=== PATIENT | female | born 2000 | race Caucasian/White ===

== ENCOUNTER 2021-03-04 19:53 | Inpatient (IN) ==
[2021-03-04] MEDS ORDERED: ONDANSETRON INJ 2 MG/ML 2 ML VIAL IV STA ×2 (20:19→21:13)
[2021-03-04] MEDS ORDERED: SODIUM CHLORIDE 0.9% 1000ML 1,000 ML IV SCH (20:30)
--- NOTE | 2021-03-04 20:39 | Emergency Department Note ---
History of Present Illness General Chief complaint: Vomiting Stated complaint: VOMITING Time Seen by Provider: 03/04/21 20:07 History of Present Illness Maximum Pain Intensity: 7 This is a 20-year-old female that presents to the emergency department via private vehicle accompanied by female with complaints of "vomiting, abdominal pain". The patient states that around 6:30 PM yesterday she began with nausea followed by dry heaving and vomiting. She also notes some chills. She has vo mited a total of 9 times. She notes periumbilical abdominal discomfort that is also involving the left and right side. She describes it like a "knife" in the abdomen. She notes every time she tries to eat she vomits. If she drinks fluids she vomits. She denies any blood in the vomit or stool. She does note some associated diarrhea. She does note a history of abdominal surgery 20 years ago for intestinal malrotation. She denies any other pertinent past medical history, surgeries or allergies. Current pain 08/30. Home Medications Medication Instructions Recorded Confirmed Type spironolactone 50 mg tablet 50 mg PO DAILY 03/04/21 03/04/21 History Allergies Allergy/AdvReac Type Severity Reaction Status Date / Time No Known Allergies Allergy Unverified 03/04/21 20:41 Past Med/Surg History Medical History Intestinal malrotation Surgical History Hx of abdominal surgery At had surgery for intestinal malrotation Social History Smoking Status: Never smoker Hx Alcohol Use: Yes Alcohol Intake Frequency: 2-4 x/Month Alcohol Intake Frequency Comment: 3-4 drinks every other week Hx Substance Use: No Feels Safe at Home: Yes Review of Systems A total of 10 systems reviewed and were otherwise negative Physical Exam Vital Signs Vital Signs - 24 hr 03/04/21 19:58 03/04/21 20:40 03/04/21 20:44 Temperature 36.4 C L Temperature Source Temporal Artery Scan Pulse Rate 102 H Pulse Rate [Apical] 80 Respiratory Rate 18 22 Respiratory Effort / Characteristics Non-Labored Spontaneous Respiratory Depth Normal Blood Pressure 127/92 Blood Pressure [Right Arm] 115/78 Blood Pressure Mean 103 Blood Pressure Mean [Right Arm] 90 Pulse Oximetry 97 98 Oxygen Delivery Method Room Air Room Air Room Air Sepsis Recent Fever Within 48 Hours No Sepsis New/Unexplained Change in Mental Status No Sepsis Action Taken by Nursing No Action Required 03/04/21 21:09 03/04/21 22:00 03/04/21 23:00 Temperature Temperature Source Pulse Rate 85 77 78 Pulse Rate [Apical] Respiratory Rate 19 16 20 Respiratory Effort / Characteristics Respiratory Depth Blood Pressure 141/87 H 112/75 107/71 Blood Pressure [Right Arm] Blood Pressure Mean 105 87 83 Blood Pressure Mean [Right Arm] Pulse Oximetry 97 98 98 Oxygen Delivery Method Room Air Room Air Room Air Sepsis Recent Fever Within 48 Hours Sepsis New/Unexplained Change in Mental Status Sepsis Action Taken by Nursing 03/05/21 00:00 Temperature Temperature Source Pulse Rate 70 Pulse Rate [Apical] Respiratory Rate 14 Respiratory Effort / Characteristics Respiratory Depth Blood Pressure 112/74 Blood Pressure [Right Arm] Blood Pressure Mean 86 Blood Pressure Mean [Right Arm] Pulse Oximetry 98 Oxygen Delivery Method Room Air Sepsis Recent Fever Within 48 Hours Sepsis New/Unexplained Change in Mental Status Sepsis Action Taken by Nursing VITAL SIGNS - Vital signs and nursing notes were reviewed. Stable and afebrile. GENERAL -20-year-old female appearing her stated age who is in no acute distress but is tearful. Communicates well with provider and answers questions appropriately. SKIN - Without rashes. No meningeal or petechial rash. HEAD - NC/AT. EYES - Sclera anicteric. MOUTH/OROPHARYNX - Without perioral cyanosis. NECK - No nuchal rigidity. LUNGS - Chest wall symmetric without accessory muscle use, intercostals retractions, or central cyanosis. Normal vesicular breath sounds CTA B/L. No wheezes, rales, or rhonchi appreciated. CARDIAC - RRR with S1/S2. No murmur, rubs, or gallops appreciated. ABDOMEN - Abdominal contour normal without pulsations or visible masses. BS normoactive all four quadrants. Generalized abdominal tenderness to palpation worse periumbilically. No guarding or rigidity. No evidence of surgical abdomen. No palpable masses, hepatosplenomegaly, or ascites noted. NEUROLOGIC - Cranial nerves II through XII grossly intact. PSYCH - A&Ox3 and cooperates fully with examiner. Pt is very pleasant and interacts well with examiner. Course Administered Medications Discontinued Medications Sodium Chloride (Nss 1000ml) 1,000 mls @ 999 mls/hr IV .Q1H1M BENY Stop: 03/04/21 21:30 Last Infusion: 03/04/21 21:33 Dose: 0 mls/hr Documented by: [id number] Admin: 03/04/21 20:31 Dose: 999 mls/hr Documented by: [id number] Ioversol (Optiray 320 100ml) 91 ml IV ONCE ONE Stop: 03/04/21 21:27 Last Admin: 03/04/21 21:30 Dose: 91 ml Documented by: [id number] Ketorolac Tromethamine (Ketorolac Tromethamine 15 Mg/Ml Vial) 15 mg IV NOW STA Stop: 03/04/21 21:10 Last Admin: 03/04/21 21:19 Dose: 15 mg Documented by: [id number] Morphine Sulfate (Morphine Sulfate 2 Mg/Ml Carp) 2 mg IV NOW STA Stop: 03/04/21 22:24 Last Admin: 03/04/21 22:48 Dose: 2 mg Documented by: [id number] Ondansetron HCl (Ondansetron Inj 2 Mg/Ml 2 Ml Vial) 4 mg IV NOW STA Stop: 03/04/21 20:20 Last Admin: 03/04/21 20:31 Dose: 4 mg Documented by: [id number] Ondansetron HCl (Ondansetron Inj 2 Mg/Ml 2 Ml Vial) 4 mg IV NOW STA Stop: 03/04/21 21:14 Last Admin: 03/04/21 21:19 Dose: 4 mg Documented by: [id number] Medical Decision Making Laboratory Data Result diagrams: 03/04/21 20:30 03/04/21 20:30 Lab Results 03/04/21 03/04/21 03/04/21 Range/Units 20:30 20:30 20:30 WBC 14.17 H (4.8-10.8) K/uL RBC 5.13 (4.2-5.4) M/uL Hgb 13.9 (12.0-16.0) g/dL Hct 42.2 (37-47) % MCV 82.3 (80-100) fL MCH 27.1 (25-34) pg MCHC 32.9 (32-36) g/dL RDW Std Deviation 44.2 (36.4-46.3) fL RDW Coeff of Jim 14.8 H (11.5-14.5) % Plt Count 297 (130-400) K/uL MPV 10.9 H (7.4-10.4) fL Immature Gran % (Auto) 0.1 % Neut % (Auto) 85.3 % Lymph % (Auto) 7.3 % [place] % (Auto) 7.1 % Eos % (Auto) 0.1 % Baso % (Auto) 0.1 % Neut # (Auto) 12.08 H (1.4-6.5) K/uL Lymph # (Auto) 1.04 L (1.2-3.4) K/uL [place] # (Auto) 1.01 H (0.11-0.59) K/uL Eos # (Auto) 0.02 (0-0.5) K/uL Baso # (Auto) 0.01 (0-0.2) K/uL Immature Gran # (Auto) 0.01 (0.00-0.02) K/uL Sodium 137 (136-145) mmol/L Potassium 3.6 (3.5-5.1) mmol/L Chloride 102 (98-107) mmol/L Carbon Dioxide 23 (21-32) mmol/L Anion Gap 12 H (3-11) BUN 17 (6-23) mg/dl Creatinine 0.92 (0.6-1.2) mg/dl Est Cr Clr Drug Dosing 106.5 ml/min Est GFR ( Amer) 103.9 ml/min Est GFR (Non-Af Amer) 89.6 ml/min BUN/Creatinine Ratio 18.5 (10-20) Glucose 97 (70-99) mg/dl Calcium 9.5 (8.5-10.1) mg/dl Magnesium 1.9 (1.7-2.4) mg/dl Total Bilirubin 1.0 (0.2-1.0) mg/dl AST 14 (13-39) U/L ALT 10 (7-52) U/L Alkaline Phosphatase 87 (34-104) U/L Total Protein 8.2 (6.0-8.3) gm/dl Albumin 4.8 (3.4-5.0) gm/dl Globulin 3.4 (2.5-4.0) gm/dl Albumin/Globulin Ratio 1.4 (0.9-2) Lipase 25 (11-82) U/L HCG, Qual Negative (Negative) Urine Color Urine Appearance (Clear) Urine pH (4.5-7.5) Ur Specific [place] (1.000-1.030) Urine Protein (Negative) Urine Glucose (UA) (Negative) Urine Ketones (Negative) Urine Blood (Negative) Urine Nitrite (Negative) Urine Bilirubin (Negative) Urine Urobilinogen (Negative) Ur Leukocyte Esterase (Negative) Urine WBC (Auto) (0-5) /hpf Urine RBC (Auto) (0-4) /hpf U Hyaline Cast (Auto) (0-5) /lpf U Epithel Cells (Auto) (0-5) /lpf Urine Bacteria (Auto) (Negative) SARS-CoV-2 (PCR) (Negative) Influenza Type A (PCR) (Neg) Influenza Type B (PCR) (Neg) RSV (RT-PCR) (Neg) 03/04/21 03/04/21 Range/Units 20:35 21:00 WBC (4.8-10.8) K/uL RBC (4.2-5.4) M/uL Hgb (12.0-16.0) g/dL Hct (37-47) % MCV (80-100) fL MCH (25-34) pg MCHC (32-36) g/dL RDW Std Deviation (36.4-46.3) fL RDW Coeff of Jim (11.5-14.5) % Plt Count (130-400) K/uL MPV (7.4-10.4) fL Immature Gran % (Auto) % Neut % (Auto) % Lymph % (Auto) % [place] % (Auto) % Eos % (Auto) % Baso % (Auto) % Neut # (Auto) (1.4-6.5) K/uL Lymph # (Auto) (1.2-3.4) K/uL [place] # (Auto) (0.11-0.59) K/uL Eos # (Auto) (0-0.5) K/uL Baso # (Auto) (0-0.2) K/uL Immature Gran # (Auto) (0.00-0.02) K/uL Sodium (136-145) mmol/L Potassium (3.5-5.1) mmol/L Chloride (98-107) mmol/L Carbon Dioxide (21-32) mmol/L Anion Gap (3-11) BUN (6-23) mg/dl Creatinine (0.6-1.2) mg/dl Est Cr Clr Drug Dosing ml/min Est GFR ( Amer) ml/min Est GFR (Non-Af Amer) ml/min BUN/Creatinine Ratio (10-20) Glucose (70-99) mg/dl Calcium (8.5-10.1) mg/dl Magnesium (1.7-2.4) mg/dl Total Bilirubin (0.2-1.0) mg/dl AST (13-39) U/L ALT (7-52) U/L Alkaline Phosphatase (34-104) U/L Total Protein (6.0-8.3) gm/dl Albumin (3.4-5.0) gm/dl Globulin (2.5-4.0) gm/dl Albumin/Globulin Ratio (0.9-2) Lipase (11-82) U/L HCG, Qual (Negative) Urine Color Yellow Urine Appearance Clear (Clear) Urine pH 6.0 (4.5-7.5) Ur Specific [place] 1.014 (1.000-1.030) Urine Protein Negative (Negative) Urine Glucose (UA) Negative (Negative) Urine Ketones 3+ H (Negative) Urine Blood Negative (Negative) Urine Nitrite Negative (Negative) Urine Bilirubin Negative (Negative) Urine Urobilinogen Negative (Negative) Ur Leukocyte Esterase 1+ H (Negative) Urine WBC (Auto) 10-30 H (0-5) /hpf Urine RBC (Auto) 0-4 (0-4) /hpf U Hyaline Cast (Auto) 1-5 (0-5) /lpf U Epithel Cells (Auto) >30 H (0-5) /lpf Urine Bacteria (Auto) 1+ H (Negative) SARS-CoV-2 (PCR) NEGATIVE (Negative) Influenza Type A (PCR) Negative (Neg) Influenza Type B (PCR) Negative (Neg) RSV (RT-PCR) Negative (Neg) Imaging Data Radiologist's Impression: CT ABDOMEN & PELVIS With Contrast: Dilated fluid and gas-filled small bowel loops with transition point to smaller caliber small bowel loops with wall thickening in the lower midline abdomen. Findings are concerning for enteritis with at least partial small bowel obstruction. Small amount of ascites. Appendix is not definitely visualized on this exam. No hydronephrosis or obstructing stone. Intrauterine device in appropriate position. Radiologist: Clark Senior M.D. Study ready at 21:37 and initial results transmitted at 22:28 MDM Narrative Patient was seen and evaluated as above in room C03. Review was performed of nursing notes and vital signs. After obtaining a thorough history and physical examination the above work up was performed. Patient presents to us today with nausea, vomiting and abdominal pain. This began as nausea and vomiting about 24 hours ago. She is tearful on exam. She has abdominal tenderness. No guarding or rigidity. No peritoneal signs. Options of care were discussed with the patient. IV access was established. Labs were drawn. She was initially given 4 mg of IV Zofran, 1 L of normal saline. She had very little improvement with this. She was then given 15 mg of IV Toradol and a second dose of 4 mg IV Zofran. The Zofran seemed to tremendously help her nausea but the abdominal pain persisted. She was then given 2 mg of IV morphine after discussing benefits and risks. She was reevaluated with tremendous improvement. Laboratory studies reveal leukocytosis 14.17. No anemia. No emergent metabolic disturbance. Urinalysis reveals what is likely a contaminated sample. Culture pending. COVID testing negative. Influenza negative. It is felt that a CT scan of the abdomen and pelvis is warranted given her symptoms. This was obtained. Results as above. There are dilated fluid and gas-filled small bowel loops with transition point to smaller caliber small bowel loops with wall thickening the lower midline abdomen noted per CT scan report. They do comment the findings are concerning for enteritis with at least partial small bowel obstruction. Patient certainly has symptoms which correlate with this. Patient had no further vomiting after medication here and do not believe that NG tube at the present time is necessary however certainly reassessments will be needed in the inpatient setting. At this time I do believe that further evaluation and management in the inpatient setting is warranted. Case discussed with the attending physician as well as the hospitalist. Please refer to further documentation regarding her stay. GCS: 15 In the evaluation and treatment of this patient, the following differential diagnoses were considered: ASC, [place], Pneumonia, GERD, Cholecystitis, Ascending Cholangitis, Cholydocholithiasis, Bowel Obstruction, ovarian torsion, perforation, appendicitis, PE, Amongst Others. Impression & Plan Small bowel obstruction, partial, Nausea vomiting and diarrhea, Enteritis Discharge Plan Visit Data Chief Complaint: Vomiting Stated Complaint: VOMITING ED Provider: Nathan [facility] ED Midlevel Provider: Gavin Matthew Discharge Problem: Small bowel obstruction, partial, Nausea vomiting and diarrhea, Enteritis Patient Disposition: Admitted As Inpatient Condition: Good Forms Stand Alone Forms: [facility] Prescriptions Prescriptions: No Action spironolactone 50 mg tablet 50 mg PO DAILY RF: 0 Referrals Referrals: [place],[facility] [Primary Care Provider] -
[2021-03-04 20:40] LABS: Basophils # (auto) 0.01 K/uL (0-0.2); Basophils % (auto) 0.1 %; Eosinophils # (auto) 0.02 K/uL (0-0.5); Eosinophils % (auto) 0.1 %; Hematocrit (blood only) 42.2 % (37-47); Hemoglobin 13.9 g/dL (12.0-16.0); Immature Granulocytes # (auto) 0.01 K/uL (0.00-0.02); Immature Granulocytes % (auto) 0.1 %; Lymphocytes # (auto) 1.04 K/uL (1.2-3.4); Lymphocytes % (auto) 7.3 %; Mean Corpuscular Hemoglobin 27.1 pg (25-34); Mean Corpuscular Hgb Conc 32.9 g/dL (32-36); Mean Corpuscular Volume 82.3 fL (80-100); Mean Platelet Volume 10.9 fL (7.4-10.4); Monocytes # (auto) 1.01 K/uL (0.11-0.59); Monocytes % (auto) 7.1 %; Neutrophils # (auto) 12.08 K/uL (1.4-6.5); Neutrophils % (auto) 85.3 %; Platelet Count 297 K/uL (130-400); RDW Coefficient of Variation 14.8 % (11.5-14.5); RDW Standard Deviation 44.2 fL (36.4-46.3); Red Blood Count 5.13 M/uL (4.2-5.4); White Blood Count 14.17 K/uL (4.8-10.8)
[2021-03-04 20:57] LABS: Albumin Globulin Ratio 1.4 (0.9-2); Albumin Level 4.8 gm/dl (3.4-5.0); BUN Creatinine Ratio 18.5 (10-20); Calcium 9.5 mg/dl (8.5-10.1); Creatinine Clr Calc Pharmacy 106.5 ml/min; Est GFR (African American) 103.9 ml/min; Est GFR (Non-African American) 89.6 ml/min; Globulin 3.4 gm/dl (2.5-4.0); Magnesium 1.9 mg/dl (1.7-2.4); Potassium 3.6 mmol/L (3.5-5.1); Total Protein 8.2 gm/dl (6.0-8.3)
[2021-03-04 21:09] LABS: Pregnancy Test, Serum Negative (Negative)
[2021-03-04] MEDS ORDERED: KETOROLAC TROMETHAMINE 15 MG/ML VIAL IV STA (21:09)
[2021-03-04 21:25] LABS: Appearance Urine Clear (Clear); Bacteria Urine Automated 1+ (Negative); Bilirubin Urine Negative (Negative); Blood Urine Negative (Negative); Color Urine Yellow; Epithelial Cell Urine Auto >30 /lpf (0-5); Glucose Urine UA Negative (Negative); Ketones Urine 3+ (Negative); Leukocyte Esterase Urine 1+ (Negative); Nitrite Urine Negative (Negative); Protein Urine Negative (Negative); RBC Urine Automated 0-4 /hpf (0-4); Specific Gravity Urine 1.014 (1.000-1.030); Urobilinogen Urine Negative (Negative)
[2021-03-04] MEDS ORDERED: OPTIRAY 320 100ml IV ONE (21:26)
[2021-03-04 22:13] LABS: Influenza A virus by PCR Negative (Neg); Influenza B virus by PCR Negative (Neg); RSV by PCR Negative (Neg); SARS CoV2 RNA(COVID-19) InHosp NEGATIVE (Negative)
[2021-03-04] MEDS ORDERED: MoRPHine SULFATE 2 MG/ML CARP IV STA (22:23)
[2021-03-04] MEDS ORDERED: PROMETHAZINE HCL 12.5 MG in SODIUM CHLORIDE 0.9% 50 ML IV PRN (23:45)
--- NOTE | 2021-03-04 23:46 | History & Physical Report ---
Date of Service March 04, 2021 Assessment & Plan (1) Small bowel obstruction, partial: Plan: Nataliia Gandhi is a 20y/o F w/ PMH significant for intestinal malrotation at , and acne; who presents for over a day worth of abdominal pain nausea and vomiting with decreased bowel movements. Partial small bowel obstruction: -Likely secondary to viral enteritis -CT abdomen pelvis demonstrating dilated fluid and gas-filled fluid-filled small bowel loops -As symptoms of currently significantly improved following administration of Zofran and morphine can hold off on initiation of NG tube at this time -Zofran PRN first-line for nausea -Phenergan PRN second line for nausea/vomiting if Zofran fails -Tylenol IV as needed for pain while patient NPO -Morphine 2 mg IV q4h PRN for severe abdominal pain -Encouraged avoidance of narcotic use as this can potentiate gastric slowing and prolonged symptom course -NPO with sips and chips until reduction in abdominal pain -Consider repeat abdominal imaging if changes in pain or failure of regression of symptoms -NSS@125/h until able to tolerate oral intake Asymptomatic bacteriuria: -Abnormal urinalysis in ED -As patient is not currently having urinary symptoms and abdominal pain less likely to be explained by urinary tract infection will hold off on initiation of antibiotics CODE STATUS: Conditional code (no artificial ventilation) DVT prophylaxis: Encourage ambulation Diet: NPO with sips and chips (2) Asymptomatic bacteriuria: History of Present Illness Primary Care Provider: [facility] Nataliia Gandhi is a 20y/o F w/ PMH significant for intestinal malrotation at , and acne; who presents for over a day worth of abdominal pain nausea and vomiting with decreased bowel movements. States that yesterday she went to lunch with some friends, and then approximately 6 hours later started to notice that she was having increasing abdominal pain as well as nausea. Over the next several hours she continued to have nausea with intermittent episodes of vomiting. Throughout the day today she noticed that she was having increased urge to go to the bathroom but every time she went she would either have nothing or pure liquid. Has not previously had complications or events like this before. Nobody else that was at lunch has developed symptoms similar to her that she is aware of. Since presentation to the emergency department, she has received 2 doses of Zofran with subsequent improvement of her nausea. As well as received 1 dose of IV morphine which significantly decreased her abdominal pain. She has been able to tolerate small amounts of sips. Has not tried to anything more substantial at this point. Presently denies any chest pain, shortness of breath, urinary discomfort, increased urinary frequency, or changes in color in urine Allergies Allergy/AdvReac Type Severity Reaction Status Date / Time No Known Allergies Allergy Unverified 03/04/21 20:41 Home Medications Medication Instructions Recorded Confirmed Type spironolactone 50 mg tablet 50 mg PO DAILY 03/04/21 03/04/21 History Past Med/Surg History Medical History Intestinal malrotation Surgical History Hx of abdominal surgery At had surgery for intestinal malrotation Social History Smoking Status: Never smoker Second Hand Exposure: No; Do You Dip or Chew Tobacco: No; Tobacco Cessation Education Requested by Patient: No Hx Alcohol Use: Yes Alcohol type: beer Alcohol Intake Frequency: 2-4 x/Month Alcohol Intake Frequency Comment: 3-4 drinks every other week Hx Substance Use: No Preferred Language: [place] Communication Ability: Effective Mule Developer Required: No Beliefs That Will Affect Care: None Current Living Situation Comment: roommates Other Information That Helps Us Care for You: No Feels Safe at Home: Yes Safety Concerns: Feels Safe At This Time Review of Systems Review of Systems: All systems reviewed & are unremarkable except as noted in HPI & below Physical Exam Constitutional: WD/WN, vitals as above Eyes: PERRL, conjunctivae normal, anicteric sclerae Respiratory: normal respiratory effort, lungs clear to auscultation Auscultation: no crackles, no rales, no rhonchi and no wheezes Cardiovascular: Rate/Rhythm: regular rate and regular rhythm Heart Sounds: no gallop, no murmur and no cardiac rub Vessels: normal peripheral pulses; no JVD Extremities: no edema Gastrointestinal (Abdomen): Inspection/Auscultation: abdomen normal to inspection; abdomen not distended Percussion/Palpation: + abdomen tender and abdomen soft; no guarding and no hepatosplenomegaly Musculoskeletal: no cyanosis or clubbing, extremities motor strength 5/5 Skin: no rashes, warm and dry Neurologic: PERRL, EOMI, accommodation nl, no face palsy, no dysarthria CN's II-XI intact bilaterally and moves all extremities Psychiatric: Orientation: alert and oriented x 3 Results & Data Results & Data ([facility]) Vital Signs (Past 12 Hours) Vital Signs Temp Pulse Pulse Resp BP BP Pulse Ox 03/04/21 23:00 78 20 107/71 98 03/04/21 22:00 77 16 112/75 98 03/04/21 21:09 85 19 141/87 H 97 03/04/21 20:44 80 22 115/78 98 03/04/21 20:40 97 03/04/21 19:58 36.4 C L 102 H 18 127/92 Laboratory Results 03/04/21 03/04/21 03/04/21 Range/Units 21:00 20:35 20:30 WBC (4.8-10.8) K/uL RBC (4.2-5.4) M/uL Hgb (12.0-16.0) g/dL Hct (37-47) % MCV (80-100) fL MCH (25-34) pg MCHC (32-36) g/dL RDW Std Deviation (36.4-46.3) fL RDW Coeff of Jim (11.5-14.5) % Plt Count (130-400) K/uL MPV (7.4-10.4) fL Immature Gran % (Auto) % Neut % (Auto) % Lymph % (Auto) % [place] % (Auto) % Eos % (Auto) % Baso % (Auto) % Neut # (Auto) (1.4-6.5) K/uL Lymph # (Auto) (1.2-3.4) K/uL [place] # (Auto) (0.11-0.59) K/uL Eos # (Auto) (0-0.5) K/uL Baso # (Auto) (0-0.2) K/uL Immature Gran # (Auto) (0.00-0.02) K/uL Sodium (136-145) mmol/L Potassium (3.5-5.1) mmol/L Chloride (98-107) mmol/L Carbon Dioxide (21-32) mmol/L Anion Gap (3-11) BUN (6-23) mg/dl Creatinine (0.6-1.2) mg/dl Est Cr Clr Drug Dosing ml/min Est GFR ( Amer) ml/min Est GFR (Non-Af Amer) ml/min BUN/Creatinine Ratio (10-20) Glucose (70-99) mg/dl Calcium (8.5-10.1) mg/dl Magnesium (1.7-2.4) mg/dl Total Bilirubin (0.2-1.0) mg/dl AST (13-39) U/L ALT (7-52) U/L Alkaline Phosphatase (34-104) U/L Total Protein (6.0-8.3) gm/dl Albumin (3.4-5.0) gm/dl Globulin (2.5-4.0) gm/dl Albumin/Globulin Ratio (0.9-2) Lipase (11-82) U/L HCG, Qual Negative (Negative) Urine Color Yellow Urine Appearance Clear (Clear) Urine pH 6.0 (4.5-7.5) Ur Specific [place] 1.014 (1.000-1.030) Urine Protein Negative (Negative) Urine Glucose (UA) Negative (Negative) Urine Ketones 3+ H (Negative) Urine Blood Negative (Negative) Urine Nitrite Negative (Negative) Urine Bilirubin Negative (Negative) Urine Urobilinogen Negative (Negative) Ur Leukocyte Esterase 1+ H (Negative) Urine WBC (Auto) 10-30 H (0-5) /hpf Urine RBC (Auto) 0-4 (0-4) /hpf U Hyaline Cast (Auto) 1-5 (0-5) /lpf U Epithel Cells (Auto) >30 H (0-5) /lpf Urine Bacteria (Auto) 1+ H (Negative) SARS-CoV-2 (PCR) NEGATIVE (Negative) Influenza Type A (PCR) Negative (Neg) Influenza Type B (PCR) Negative (Neg) RSV (RT-PCR) Negative (Neg) 03/04/21 03/04/21 Range/Units 20:30 20:30 WBC 14.17 H (4.8-10.8) K/uL RBC 5.13 (4.2-5.4) M/uL Hgb 13.9 (12.0-16.0) g/dL Hct 42.2 (37-47) % MCV 82.3 (80-100) fL MCH 27.1 (25-34) pg MCHC 32.9 (32-36) g/dL RDW Std Deviation 44.2 (36.4-46.3) fL RDW Coeff of Jim 14.8 H (11.5-14.5) % Plt Count 297 (130-400) K/uL MPV 10.9 H (7.4-10.4) fL Immature Gran % (Auto) 0.1 % Neut % (Auto) 85.3 % Lymph % (Auto) 7.3 % [place] % (Auto) 7.1 % Eos % (Auto) 0.1 % Baso % (Auto) 0.1 % Neut # (Auto) 12.08 H (1.4-6.5) K/uL Lymph # (Auto) 1.04 L (1.2-3.4) K/uL [place] # (Auto) 1.01 H (0.11-0.59) K/uL Eos # (Auto) 0.02 (0-0.5) K/uL Baso # (Auto) 0.01 (0-0.2) K/uL Immature Gran # (Auto) 0.01 (0.00-0.02) K/uL Sodium 137 (136-145) mmol/L Potassium 3.6 (3.5-5.1) mmol/L Chloride 102 (98-107) mmol/L Carbon Dioxide 23 (21-32) mmol/L Anion Gap 12 H (3-11) BUN 17 (6-23) mg/dl Creatinine 0.92 (0.6-1.2) mg/dl Est Cr Clr Drug Dosing 106.5 ml/min Est GFR ( Amer) 103.9 ml/min Est GFR (Non-Af Amer) 89.6 ml/min BUN/Creatinine Ratio 18.5 (10-20) Glucose 97 (70-99) mg/dl Calcium 9.5 (8.5-10.1) mg/dl Magnesium 1.9 (1.7-2.4) mg/dl Total Bilirubin 1.0 (0.2-1.0) mg/dl AST 14 (13-39) U/L ALT 10 (7-52) U/L Alkaline Phosphatase 87 (34-104) U/L Total Protein 8.2 (6.0-8.3) gm/dl Albumin 4.8 (3.4-5.0) gm/dl Globulin 3.4 (2.5-4.0) gm/dl Albumin/Globulin Ratio 1.4 (0.9-2) Lipase 25 (11-82) U/L HCG, Qual (Negative) Urine Color Urine Appearance (Clear) Urine pH (4.5-7.5) Ur Specific [place] (1.000-1.030) Urine Protein (Negative) Urine Glucose (UA) (Negative) Urine Ketones (Negative) Urine Blood (Negative) Urine Nitrite (Negative) Urine Bilirubin (Negative) Urine Urobilinogen (Negative) Ur Leukocyte Esterase (Negative) Urine WBC (Auto) (0-5) /hpf Urine RBC (Auto) (0-4) /hpf U Hyaline Cast (Auto) (0-5) /lpf U Epithel Cells (Auto) (0-5) /lpf Urine Bacteria (Auto) (Negative) SARS-CoV-2 (PCR) (Negative) Influenza Type A (PCR) (Neg) Influenza Type B (PCR) (Neg) RSV (RT-PCR) (Neg) Diagnostic Findings CT ABDOMEN & PELVIS With Contrast: Dilated fluid and gas-filled small bowel loops with transition point to smaller caliber small bowel loops with wall thickening in the lower midline abdomen. Findings are concerning for enteritis with at least partial small bowel obstruction. Small amount of ascites. Appendix is not definitely visualized on this exam. No hydronephrosis or obstructing stone. Intrauterine device in appropriate position. Radiologist: Clark Senior M.D. Medications Administered Home Medication List Medication Instructions Recorded spironolactone 50 mg tablet 50 mg PO DAILY 03/04/21 Supervising Physician Co-Signing Physician Notes Patient seen and examined, chart reviewed, case discussed with Dr. Akers and I agree with his assessment and plan as above. In brief, patient is a 20yo female with history of intestinal malrotation as a child presenting with acute diarrhea after lunch with friends. +Abdominal pain No BM or flatus since arrival +Nausea, well controlled with Zofran Exam: Afebrile, HD stable, nontoxic, NAD SKin -intact, no rash HEENT - NC/AT, PERRL, MMM Heart - +S1/S2, regular, no m/r/g Lungs - CTA Abd - +BS, soft, ND, tender to palpation LLQ Ext - no edema Labs and images reviewed +leukocytosis Assessment/Plan ?SBO vs enteritis -NPO, IVF, control of pain and nausea -Consider KUB in AM -Remainder as above Resident Activity Tracking Resident Involvement: Resident Care Provided Care Provided: Adult Hospital Medicine
[2021-03-05] MEDS: SODIUM CHLORIDE 0.9% 1000ML 1,000 ML IV SCH ×3 (01:05→17:16)
--- NOTE | 2021-03-05 02:31 | Billing Data ---
Date of Service March 04, 2021 Coding Level of Care Code INT OBSERVATION CARE 50M LVL 2
[2021-03-05] MEDS: ONDANSETRON INJ 2 MG/ML 2 ML VIAL IV PRN ×2 (05:41→12:54)
[2021-03-05 06:12] LABS: Basophils # (auto) 0.01 K/uL (0-0.2); Basophils % (auto) 0.1 %; Eosinophils # (auto) 0.15 K/uL (0-0.5); Eosinophils % (auto) 1.6 %; Hemoglobin 11.3 g/dL (12.0-16.0); Immature Granulocytes # (auto) 0.01 K/uL (0.00-0.02); Immature Granulocytes % (auto) 0.1 %; Lymphocytes # (auto) 2.34 K/uL (1.2-3.4); Lymphocytes % (auto) 24.3 %; Mean Corpuscular Hemoglobin 26.8 pg (25-34); Mean Corpuscular Hgb Conc 32.3 g/dL (32-36); Mean Corpuscular Volume 82.9 fL (80-100); Mean Platelet Volume 10.5 fL (7.4-10.4); Monocytes # (auto) 1.07 K/uL (0.11-0.59); Monocytes % (auto) 11.1 %; Neutrophils # (auto) 6.03 K/uL (1.4-6.5); Neutrophils % (auto) 62.8 %; Platelet Count 235 K/uL (130-400); RDW Coefficient of Variation 14.9 % (11.5-14.5); RDW Standard Deviation 44.4 fL (36.4-46.3); Red Blood Count 4.22 M/uL (4.2-5.4); White Blood Count 9.61 K/uL (4.8-10.8)
[2021-03-05] MEDS: MoRPHine SULFATE 2 MG/ML CARP IV PRN ×4 (06:40→21:22)
[2021-03-05 06:46] LABS: Albumin Globulin Ratio 1.4 (0.9-2); Albumin Level 3.7 gm/dl (3.4-5.0); BUN Creatinine Ratio 17.3 (10-20); Bilirubin,Total 0.8 mg/dl (0.2-1.0); Calcium 8.3 mg/dl (8.5-10.1); Creatinine Clr Calc Pharmacy 121.1 ml/min; Est GFR (African American) 121.2 ml/min; Est GFR (Non-African American) 104.6 ml/min; Globulin 2.6 gm/dl (2.5-4.0); Magnesium 1.9 mg/dl (1.7-2.4); Phosphorus 3.9 mg/dl (2.5-4.9); Potassium 3.5 mmol/L (3.5-5.1); Total Protein 6.3 gm/dl (6.0-8.3)
--- NOTE | 2021-03-05 07:47 | Hospitalist Progress Note ---
Date of Service March 05, 2021 Assessment & Plan (1) Small bowel obstruction, partial: Plan: Nataliia Gandhi is a 20y/o F w/ PMH significant for intestinal malrotation at , and acne; who presents for over a day worth of abdominal pain nausea and vomiting with decreased bowel movements. Partial small bowel obstruction: -Patient with hx of abdominal surgery when . -CT abdomen pelvis demonstrating dilated fluid and gas-filled fluid-filled small bowel loops -SBO most likely 2/2 adhesions. -Given 1 bag NSS@125cc/h, NPO, advance diet as tolerated. -Surgery consulted. -Recommend conservative treatment at this time with NPO, IV fluids, supportive care. -If symptoms worsen can consider ex lap. -Repeat AM labs and KUB. -Tylenol IV as needed for pain while patient NPO. -Morphine 2 mg IV q4h PRN for severe abdominal pain -Consider repeat abdominal imaging if changes in pain or increased vomiting. -Zofran q4h PRN, second line Phenergan 12.5mg Q6 PRN for nausea Asymptomatic bacteriuria: -Abnormal urinalysis in ED -As patient is not currently having urinary symptoms and abdominal pain less likely to be explained by urinary tract infection will hold off on initiation of antibiotics CODE STATUS: Conditional code (no artificial ventilation) DVT prophylaxis: Encourage ambulation Diet: NPO with sips and chips (2) Asymptomatic bacteriuria: Admission and Anticipated Discharge Date Admission Date: March 04, 2021 Supervising Physician Co-Signing Physician Notes Resident Physician Supervision Note: I independently interviewed and examined the patient and verified the barber history and physical, reviewed labs and image studies and agree with resident Dr. Mccormack findings and care plan. Subjective Patient seen at bedside this morning. Patient stated she is still feeling pain in the abdomen that's about a 6 out of 10. Patient denies nausea and denies having any episodes of emesis prior to coming in to the hospital. Denies fevers, chills. Patient stated she went out to lunch with her friends the day her pain started and ate a pizza with pesto and chicken. She said her friends ate the same thing and none of them developed any illness or the same symptoms. Physical Exam Constitutional: WD/WN, vitals as above Eyes: PERRL, conjunctivae normal, anicteric sclerae Respiratory: normal respiratory effort, lungs clear to auscultation Cardiovascular: RRR, no murmur, no edema Gastrointestinal (Abdomen): BS+ all 4 quadrants, non-distended, soft. Tenderness to palpation in all 4 quadrants, no rebound tenderness or guarding. Results & Data Results & Data ([facility]) Vital Signs (Past 12 Hours) Vital Signs Temp Pulse Pulse Pulse Resp BP BP 03/05/21 00:54 36.7 C 60 16 101/62 03/05/21 00:00 70 14 112/74 03/04/21 23:00 78 20 107/71 03/04/21 22:00 77 16 112/75 03/04/21 21:09 85 19 141/87 H 03/04/21 20:44 80 22 115/78 03/04/21 20:40 03/04/21 19:58 36.4 C L 102 H 18 127/92 Pulse Ox 03/05/21 00:54 97 03/05/21 00:00 98 03/04/21 23:00 98 03/04/21 22:00 98 03/04/21 21:09 97 03/04/21 20:44 98 03/04/21 20:40 97 03/04/21 19:58 Resident Activity Tracking Resident Involvement: Resident Care Provided Care Provided: Adult Hospital Medicine
--- NOTE | 2021-03-05 08:08 | CT Scan Report ---
CT OF THE ABDOMEN AND PELVIS WITH CONTRAST CLINICAL HISTORY: nausea, vomiting, diarrhea COMPARISON STUDY: None. TECHNIQUE: Following IV administration of 91 mL of Optiray, axial images of the abdomen and pelvis we re obtained from the lung bases to the proximal femurs. Images were reviewed in the axial, sagittal, and coronal planes. IV contrast was administered without complication. Automated exposure control wa s utilized for the study. A dose lowering technique was utilized adhering to the principles of ALARA . CT DOSE: 370.86 mGy.cm FINDINGS: Lung bases are unremarkable. No pneumatosis, free air or portal venous gas is present. The liver, spleen, adrenal glands, kidneys and pancreas are unremarkable. There is no biliary or pancreat ic ductal dilatation. There is no peripancreatic or pericholecystic infiltration. No hydronephrosis i s present. Note is made of evidence for intestinal malrotation. Specifically, the SMA and SMV relatio nship is inverted, the ligament of Treitz is abnormally positioned and the cecum is located within th e mid abdomen. However, there is no significant swirling of the mesentery and the proximal to mid sma ll bowel is unremarkable. Therefore, there is no convincing CT evidence for midgut volvulus. However, the mid to distal small bowel is moderately dilated and fluid-filled, measuring up to 3.7 cm in renzo lashaun. A small amount of associated ascites and mesenteric infiltration is present. Discrete transition point is not identified however distal small bowel is decompressed. Note is made of moderate wall th ickening of multiple ileal loops. Intrauterine device is in place. Major vasculature is patent. No ac rukhsana fracture or suspicious lesion is identified within visualized skeletal structures. IMPRESSION: 1. Moderately dilated, fluid-filled mid to distal small bowel consistent with a small bowel obstructi on. A well-defined transition point not identified. The etiology for this obstruction is not clear on this exam although may be secondary to a nonspecific enteritis given wall thickening of multiple ile al loops. Associated mesenteric infiltration and ascites, as described above. 2. Evidence for congenital intestinal malrotation, as described above. However, no significant swirli ng of the mesentery and the proximal to mid small bowel is unremarkable. Therefore, there is no convi ncing CT evidence for midgut volvulus. However, close clinical monitoring is recommended. If persiste nt symptoms, surgical consultation is recommended. ACT 112: Negative or not required by law. Electronically signed by: Bud Antony M.D. 03/05/2021 8:07 AM
[2021-03-05] MEDS: ACETAMINOPHEN 1000 MG/100 ML IV IV PRN ×2 (09:06→22:20)
--- NOTE | 2021-03-05 12:53 | Surgery Consultation ---
Date of Consultation March 05, 2021 Assessment & Plan (1) Enteritis: (2) Small bowel obstruction, partial: pt is a 20 year-old female who was admitted to hospital for abdominal pain with vomiting, IMP: SBO, enteritis? adhesion ? plan, recommend conservative treatment first, NPO, IV fluid, control pain, repeat labs KUB in morning, possible to do exploratory laparotomy if pt's symptoms are getting worse, pt understood, she agrees with the treatment, plan, I answered all questions,will F/U, Supervising Physician Co-Signing Physician Notes Patient seen and examined, chart reviewed, case discussed with Dr. Akers and I agree with his assessment and plan as above. In brief, patient is a 20yo female with history of intestinal malrotation as a child presenting with acute diarrhea after lunch with friends. +Abdominal pain No BM or flatus since arrival +Nausea, well controlled with Zofran Exam: Afebrile, HD stable, nontoxic, NAD SKin -intact, no rash HEENT - NC/AT, PERRL, MMM Heart - +S1/S2, regular, no m/r/g Lungs - CTA Abd - +BS, soft, ND, tender to palpation LLQ Ext - no edema Labs and images reviewed +leukocytosis Assessment/Plan ?SBO vs enteritis -NPO, IVF, control of pain and nausea -Consider KUB in AM -Remainder as above History of Present Illness Reason for Consultation: SBO Requesting Physician: Claire Lozada MD Attending Physician: Claire Lozada MD History of Present Illness History of Present Illness Primary Care Provider: [facility] CC: abdominal pain with nausea and vomiting, Nataliia Gandhi is a 20y/o F w/ PMH significant for intestinal malrotation at , and acne; who presents for over a day worth of abdominal pain nausea and vomiting with decreased bowel movements. States that yesterday she went to lunch with some friends, and then approximately 6 hours later started to notice that she was having increasing abdominal pain as well as nausea. Over the next several hours she continued to have nausea with intermittent episodes of vomiting. Throughout the day today she noticed that she was having increased urge to go to the bathroom but every time she went she would either have nothing or pure liquid. Has not previously had complications or events like this before. Nobody else that was at lunch has developed symptoms similar to her that she is aware of. Since presentation to the emergency department, she has received 2 doses of Zofran with subsequent improvement of her nausea. As well as received 1 dose of IV morphine which significantly decreased her abdominal pain. She has been able to tolerate small amounts of sips. Has not tried to anything more substantial at this point. Presently denies any chest pain, shortness of breath, urinary discomfort, increased urinary frequency, or changes in color in urine I ( Olaf Calderón MD) got a call for consult SBO, I reviewed pts' H/P, labs CT scan with pt, pt feels better, but not pass gas or BM yet, no vomiting, since admittion, I attempted to place NG tube, but pt is not tolerated it, pt had abdominal surgery at her early age, pt did not what kind surgery she had. pt passed BM yesterday, Allergies Allergy/AdvReac Type Severity Reaction Status Date / Time No Known Allergies Allergy Unverified 03/04/21 20:41 Home Medications Medication Instructions Recorded Confirmed Type spironolactone 50 mg tablet 50 mg PO DAILY 03/04/21 03/04/21 His tory Past Med/Surg History Medical History Intestinal malrotation Surgical History Hx of abdominal surgery At had surgery for intestinal malrotation Social History Smoking Status: Never smoker Second Hand Exposure: No; Do You Dip or Chew Tobacco: No; Tobacco Cessation Education Requested by Patient: No Hx Alcohol Use: Yes Alcohol type: beer Alcohol Intake Frequency: 2-4 x/Month Alcohol Intake Frequency Comment: 3-4 drinks every other week Hx Substance Use: No Preferred Language: Dominican Communication Ability: Effective Rn Nicu Required: No Beliefs That Will Affect Care: None Current Living Situation Comment: roommates Other Information That Helps Us Care for You: No Feels Safe at Home: Yes Safety Concerns: Feels Safe At This Time Review of Systems Review of Systems: All systems reviewed & are unremarkable except as noted in HPI & below Allergies Allergy/AdvReac Type Severity Reaction Status Date / Time No Known Allergies Allergy Unverified 03/04/21 20:41 Home Medications Medication Instructions Recorded Confirmed Type spironolactone 50 mg tablet 50 mg PO DAILY 03/04/21 03/04/21 History Patient History Medical History Intestinal malrotation Surgical History Hx of abdominal surgery At had surgery for intestinal malrotation Social History Smoking Status: Never smoker Second Hand Exposure: No; Do You Dip or Chew Tobacco: No; Tobacco Cessation Education Requested by Patient: No Hx Alcohol Use: Yes Alcohol type: beer Alcohol Intake Frequency: 2-4 x/Month Alcohol Intake Frequency Comment: 3-4 drinks every other week Hx Substance Use: No Preferred Language: Dominican Communication Ability: Effective Rn Nicu Required: No Beliefs That Will Affect Care: None Current Living Situation Comment: roommates Other Information That Helps Us Care for You: No Feels Safe at Home: Yes Safety Concerns: Feels Safe At This Time Assistive Devices: None Review of Systems Constitutional: as per Subjective / HPI Eyes: as per Subjective / HPI Ear, Nose, Mouth, Throat: as per Subjective / HPI Respiratory: as per Subjective / HPI Cardiovascular: as per Subjective / HPI Gastrointestinal: malrotaion GI, surgery on abdomen Genitourinary: as per Subjective / HPI Musculoskeletal: as per Subjective / HPI Neurologic: as per Subjective / HPI Psychiatric: as per Subjective / HPI Endocrine: as per Subjective / HPI Hematologic / Lymphatic: as per Subjective / HPI Physical Exam Constitutional: WD/WN, vitals as above Eyes: PERRL, conjunctivae normal, anicteric sclerae Neck: trachea midline, no thyromegaly Respiratory: normal respiratory effort, lungs clear to auscultation Cardiovascular: RRR, no murmur, no edema Gastrointestinal (Abdomen): soft, mild tenderness periumbilical area, no rebound pain, no distend, BS + Musculoskeletal: no cyanosis or clubbing, extremities motor strength 5/5 Neurologic: patellar DTR's 2+ bilat, sensation intact Psychiatric: A+Ox3, euthymic affect Results & Data ([facility]) Vital Signs (Past 12 Hours) Vital Signs Temp Pulse Resp BP BP Pulse Ox 03/05/21 09:10 106/71 03/05/21 07:45 36.7 C 63 14 84/53 L 98 03/05/21 00:54 36.7 C 60 16 101/62 97 Laboratory Results Abnormal lab results 03/04/21 03/04/21 03/04/21 Range/Units 20:30 20:30 21:00 WBC 14.17 H (4.8-10.8) K/uL Hgb (12.0-16.0) g/dL Hct (37-47) % RDW Coeff of Jim 14.8 H (11.5-14.5) % MPV 10.9 H (7.4-10.4) fL Neut # (Auto) 12.08 H (1.4-6.5) K/uL Lymph # (Auto) 1.04 L (1.2-3.4) K/uL [place] # (Auto) 1.01 H (0.11-0.59) K/uL Chloride (98-107) mmol/L Anion Gap 12 H (3-11) Calcium (8.5-10.1) mg/dl AST (13-39) U/L Urine Ketones 3+ H (Negative) Ur Leukocyte Esterase 1+ H (Negative) Urine WBC (Auto) 10-30 H (0-5) /hpf U Epithel Cells (Auto) >30 H (0-5) /lpf Urine Bacteria (Auto) 1+ H (Negative) 03/05/21 03/05/21 Range/Units 05:45 05:45 WBC (4.8-10.8) K/uL Hgb 11.3 L (12.0-16.0) g/dL Hct 35.0 L (37-47) % RDW Coeff of Jim 14.9 H (11.5-14.5) % MPV 10.5 H (7.4-10.4) fL Neut # (Auto) (1.4-6.5) K/uL Lymph # (Auto) (1.2-3.4) K/uL [place] # (Auto) 1.07 H (0.11-0.59) K/uL Chloride 108 H (98-107) mmol/L Anion Gap (3-11) Calcium 8.3 L (8.5-10.1) mg/dl AST 11 L (13-39) U/L Urine Ketones (Negative) Ur Leukocyte Esterase (Negative) Urine WBC (Auto) (0-5) /hpf U Epithel Cells (Auto) (0-5) /lpf Urine Bacteria (Auto) (Negative) Diagnostic Findings CT OF THE ABDOMEN AND PELVIS WITH CONTRAST CLINICAL HISTORY: nausea, vomiting, diarrhea COMPARISON STUDY: None. TECHNIQUE: Following IV administration of 91 mL of Optiray, axial images of the abdomen and pelvis were obtained from the lung bases to the proximal femurs. Images were reviewed in the axial, sagittal, and coronal planes. IV contrast was administered without complication. Automated exposure control was utilized for the study. A dose lowering technique was utilized adhering to the principles of ALARA. CT DOSE: 370.86 mGy.cm FINDINGS: Lung bases are unremarkable. No pneumatosis, free air or portal venous gas is present. The liver, spleen, adrenal glands, kidneys and pancreas are unremarkable. There is no biliary or pancreatic ductal dilatation. There is no peripancreatic or pericholecystic infiltration. No hydronephrosis is present. Note is made of evidence for intestinal malrotation. Specifically, the SMA and SMV relationship is inverted, the ligament of Treitz is abnormally positioned and the cecum is located within the mid abdomen. However, there is no significant swirling of the mesentery and the proximal to mid small bowel is unremarkable. Therefore, there is no convincing CT evidence for midgut volvulus. However, the mid to distal small bowel is moderately dilated and fluid-filled, measuring up to 3.7 cm in caliber. A small amount of associated ascites and mesenteric infiltration is present. Discrete transition point is not identified however distal small bowel is decompressed. Note is made of moderate wall thickening of multiple ileal loops. Intrauterine device is in place. Major vasculature is patent. No acute fracture or suspicious lesion is identified within visualized skeletal structures. IMPRESSION: 1. Moderately dilated, fluid-filled mid to distal small bowel consistent with a small bowel obstruction. A well-defined transition point not identified. The etiology for this obstruction is not clear on this exam although may be secondary to a nonspecific enteritis given wall thickening of multiple ileal loops. Associated mesenteric infiltration and ascites, as described above. 2. Evidence for congenital intestinal malrotation, as described above. However, no significant swirling of the mesentery and the proximal to mid small bowel is unremarkable. Therefore, there is no convincing CT evidence for midgut volvulus. However, close clinical monitoring is recommended. If persistent symptoms, surgical consultation is recommended.
[2021-03-06] MEDS: SODIUM CHLORIDE 0.9% 1000ML 1,000 ML IV SCH ×2 (02:02→17:22)
[2021-03-06] MEDS: MoRPHine SULFATE 2 MG/ML CARP IV PRN ×4 (02:03→18:51)
--- NOTE | 2021-03-06 07:02 | XRay Report ---
KUB HISTORY: Acute generalized abdominal pain with reported small bowel obstruction SBO COMPARISON: CT abdomen and pelvis March 04, 2021 FINDINGS: Air is noted within the large bowel. There is decreased small bowel distention with a few l oops of small bowel within the central abdomen measuring up to 2.9 cm. IUD of the mid pelvis. No brett al calculi. No ureteral calculi. No pneumoperitoneum or pneumatosis. No fracture. IMPRESSION: Findings suggestive of resolving small bowel obstruction. ACT 112: Negative or not required by law. The above report was generated using voice recognition software. It may contain grammatical, syntax o r spelling errors. Electronically signed by: Bryan George M.D. 03/06/2021 7:00 AM
--- NOTE | 2021-03-06 07:20 | Hospitalist Progress Note ---
Date of Service March 06, 2021 Assessment & Plan (1) Small bowel obstruction, partial: Plan: Nataliia Gandhi is a 20y/o F w/ PMH significant for intestinal malrotation at , and acne; who presents for over a day worth of abdominal pain nausea and vomiting with decreased bowel movements. Partial small bowel obstruction: -Patient with hx of abdominal surgery when infant. -CT abdomen pelvis demonstrating dilated fluid and gas-filled fluid-filled small bowel loops -SBO most likely 2/2 adhesions. -Given 1 bag NSS@125cc/h, NPO, advance diet as tolerated. -Surgery consulted. -Recommend conservative treatment at this time with NPO, IV fluids, supportive care. -If symptoms worsen can consider ex lap. -KUB this morning showing resolving SBO. -Tylenol IV as needed for pain while patient NPO. -Morphine 2 mg IV q4h PRN for severe abdominal pain -Zofran q4h PRN, second line Phenergan 12.5mg Q6 PRN for nausea -if passing gas - to advance diet to clears Hypoglycemia: -Glucose on BMP 48, repeat on glucometer 2 hours later 46. Patient asymptomatic. -Most likely 2/2 NPO status. -Given 1 bag D5LR. -Cont. to monitor. Asymptomatic bacteriuria: -Abnormal urinalysis in ED, urine culture w/ no growth. -As patient is not currently having urinary symptoms and abdominal pain less likely to be explained by urinary tract infection will hold off on initiation of antibiotics CODE STATUS: Conditional code (no artificial ventilation) DVT prophylaxis: Encourage ambulation Diet: NPO with sips and chips (2) Asymptomatic bacteriuria: Admission and Anticipated Discharge Date Admission Date: March 04, 2021 Supervising Physician Co-Signing Physician Notes Resident Physician Supervision Note: I independently interviewed and examined the patient and verified the barber history and physical, reviewed labs and image studies and agree with resident Dr. Mccormack findings and care plan. Subjective Patient seen at the bedside this morning. Patient saying she is feeling overall better than yesterday but pain is still present. No nausea at the time being and patient has not vomited while here. While checking on the patient in the evening, she let me know she has not had a bowel movement or passed gas yet. Physical Exam Constitutional: WD/WN, vitals as above Eyes: PERRL, conjunctivae normal, anicteric sclerae Respiratory: normal respiratory effort, lungs clear to auscultation Cardiovascular: RRR, no murmur, no edema Gastrointestinal (Abdomen): Tenderness to palpation in all 4 quadrants. No rebound tenderness or guarding. Results & Data Results & Data ([facility]) Vital Signs (Past 12 Hours) Vital Signs Temp Pulse Resp BP Pulse Ox 03/05/21 22:50 36.2 C L 68 16 97/56 L 98 Resident Activity Tracking Resident Involvement: Resident Care Provided Care Provided: Adult Hospital Medicine
--- NOTE | 2021-03-06 07:44 | Surgery Progress Note ---
Date of Service March 06, 2021 Assessment & Plan (1) Enteritis: (2) Small bowel obstruction, partial: Plan: pt is a 20 year-old female who was admitted to hospital for abdominal pain with vomiting, IMP: SBO, enteritis? adhesion ? plan, recommend conservative treatment first, NPO, IV fluid, control pain, repeat labs KUB in morning, possible to do exploratory laparotomy if pt's symptoms are getting worse, pt understood, she agrees with the treatment, plan, I answered all questions,will F/U, 03/06/2021, 7:47AM F/U SBO doing better, passed some gas, less abdominal pain, KUB-IMPRESSION: Findings suggestive of resolving small bowel obstruction. possible try clear diet if pt pass more gas today afternoon or tomorrow, continue conservative treatment professional engineer surgeon will cover this weekend, thanks, Admission and Anticipated Discharge Date Admission Date: March 04, 2021 Supervising Physician Co-Signing Physician Notes Resident Physician Supervision Note: I independently interviewed and examined the patient and verified the barber history and physical, reviewed labs and image studies and agree with resident Dr. Mccormack findings and care plan. Subjective Patient seen at the bedside this morning. pt feels better, passed some gas, no BM yet, pt denies vomiting, no fever, KUB- IMPRESSION: Findings suggestive of resolving small bowel obstruction. Review of Systems Constitutional: as per Subjective / HPI Eyes: as per Subjective / HPI Ear, Nose, Mouth, Throat: as per Subjective / HPI Respiratory: as per Subjective / HPI Cardiovascular: as per Subjective / HPI Gastrointestinal: malrotaion GI, surgery on abdomen Genitourinary: as per Subjective / HPI Musculoskeletal: as per Subjective / HPI Neurologic: as per Subjective / HPI Psychiatric: as per Subjective / HPI Endocrine: as per Subjective / HPI Hematologic / Lymphatic: as per Subjective / HPI Physical Exam Constitutional: WD/WN, vitals as above Eyes: PERRL, conjunctivae normal, anicteric sclerae Neck: trachea midline, no thyromegaly Respiratory: normal respiratory effort, lungs clear to auscultation Cardiovascular: RRR, no murmur, no edema Gastrointestinal (Abdomen): soft, mild tenderness at periumbilical area, no rebound pain, no distend, BS + Musculoskeletal: no cyanosis or clubbing, extremities motor strength 5/5 Neurologic: patellar DTR's 2+ bilat, sensation intact Psychiatric: A+Ox3, euthymic affect Results & Data ([facility]) Vital Signs (Past 12 Hours) Vital Signs Temp Pulse Resp BP BP Pulse Ox 03/06/21 07:03 36.3 C L 61 16 98/59 L 99 03/05/21 22:50 36.2 C L 68 16 97/56 L 98 Diagnostic Findings KUB-
[2021-03-06 08:22] LABS: Basophils # (auto) 0.02 K/uL (0-0.2); Basophils % (auto) 0.3 %; Eosinophils # (auto) 0.12 K/uL (0-0.5); Eosinophils % (auto) 1.6 %; Hematocrit (blood only) 34.1 % (37-47); Immature Granulocytes # (auto) 0.01 K/uL (0.00-0.02); Immature Granulocytes % (auto) 0.1 %; Lymphocytes # (auto) 1.76 K/uL (1.2-3.4); Lymphocytes % (auto) 24.1 %; Mean Corpuscular Hemoglobin 27.3 pg (25-34); Mean Corpuscular Hgb Conc 32.3 g/dL (32-36); Mean Corpuscular Volume 84.6 fL (80-100); Mean Platelet Volume 10.9 fL (7.4-10.4); Monocytes # (auto) 0.69 K/uL (0.11-0.59); Monocytes % (auto) 9.4 %; Neutrophils # (auto) 4.71 K/uL (1.4-6.5); Neutrophils % (auto) 64.5 %; Platelet Count 210 K/uL (130-400); RDW Coefficient of Variation 14.9 % (11.5-14.5); RDW Standard Deviation 45.8 fL (36.4-46.3); Red Blood Count 4.03 M/uL (4.2-5.4); White Blood Count 7.31 K/uL (4.8-10.8)
[2021-03-06 09:02] LABS: BUN Creatinine Ratio 16.9 (10-20); Calcium 7.6 mg/dl (8.5-10.1); Creatinine Clr Calc Pharmacy 138.1 ml/min; Est GFR (African American) 142.1 ml/min; Est GFR (Non-African American) 122.6 ml/min; Potassium 3.8 mmol/L (3.5-5.1)
[2021-03-06] MEDS ORDERED: D5W AND LACTATED RINGERS 1,000 ML IV SCH ×2 (09:45→20:30)
[2021-03-06] MEDS: ACETAMINOPHEN 1000 MG/100 ML IV IV PRN (19:24)
[2021-03-06] MEDS ORDERED: KETOROLAC TROMETHAMINE 15 MG/ML VIAL IV ONE (19:50)
--- NOTE | 2021-03-06 20:51 | XRay Report ---
XR KUB/Abdomen 1 view at 8:32 PM CLINICAL HISTORY: SBO eval.. COMPARISON STUDY: 03/06/2021 at 6:54 AM TECHNIQUE: Single view of the abdomen. FINDINGS: Compared to the previous examination, air-filled loops of both large and small bowel are seen without evidence for disproportionate dilatation or obstruction. There is no evidence for organomegaly or gr oss intra-abdominal mass. There is gross distention of the urinary bladder. No abnormal calcification s are seen along the course of the urinary tracts bilaterally. No acute osseous pathology. IUD is in place. IMPRESSION: 1.Air-filled loops of both large and small bowel without evidence for disproportionate dilatation or obstruction. Distention of the urinary bladder. ACT 112: Negative or not required by law. Electronically signed by: Aly Joaquin M.D. 03/06/2021 8:49 PM
--- NOTE | 2021-03-07 05:31 | Surgery Progress Note ---
Date of Service March 07, 2021 Assessment & Plan (1) Small bowel obstruction, partial: Plan: Patient has been admitted by the hospitalist service: CT scan on 03/04/2021 showed a moderately distended and fluid-filled small bowel concerning for small bowel obstruction without a clear transition point. Findings were also felt to potentially represent nonspecific enteritis. Evidence for congenital intestinal malrotation was also noted but there is no evidence of a volvulus. KUB was performed on 03/06/2021 that showed evidence for a resolving small bowel obstruction KUB was repeated the evening of 03/06/2021 that showed air-filled loops of large and small bowel that were not entirely convincing of small bowel obstruction Due to patient's worsening symptoms would recommend keeping patient n.p.o. If nausea vomiting ensue consideration may need to be given to placing an NG tube Maintain on IV fluid for hydration Admission and Anticipated Discharge Date Admission Date: March 04, 2021 Supervising Physician Co-Signing Physician Notes Dr. Quinteros-covering for Dr. Calderón Patient apparently did have some abdominal pain last evening-KUB did not show significantly dilated loops of bowel Gas within the colon and small bowel. Patient has not had any vomiting since admission Her abdomen is soft and she does have bowel sounds but does have some discomfort to deep palpation Apparent attempt of NG placement through right nares in the ER was somewhat traumatic and on successful Will continue with limited p.o., try to hold off on NG placement which would be via left nares and when she vomits Consider contrast study-small bowel follow-through may be best but we will hold off for now I have no plan for surgical intervention unless this would be a life-threatening situation Encouraged ambulation-check electrolytes, mag and Phos Subjective Patient is resting in bed. She has been seen by [facility] general surgery for concern for a small bowel obstruction that was felt to be resolving yesterday. Consideration was given to advancing patient's diet however she continues to have some generalized abdominal pain. Patient says that she is not passing any further flatus or has not moved her bowels yet. She also notes that she does feel nauseated at times without emesis. She denies any fevers, shakes, chills Physical Exam Gastrointestinal (Abdomen): Bowel sounds are hypoactive. Abdomen is minimally distended. There is no rebound tenderness or guarding. Patient does have some generalized pain with palpation. Results & Data ([facility]) Vital Signs (Past 12 Hours) Vital Signs Temp Pulse Resp BP Pulse Ox 03/06/21 23:00 36.7 C 63 17 101/66 97 PG Care Time/CCT Total # of Minutes Spent Total Time Spent with Patient: Total time spent is greater than 50% in coordination of care (as documented) at patient's floor/unit and/or counseling patient: Coding Level of Care Code 91897 Subseq Hosp Care Lvl 1 Diagnoses Small bowel obstruction, partial K56.600
[2021-03-07 06:41] LABS: Basophils # (auto) 0.02 K/uL (0-0.2); Basophils % (auto) 0.4 %; Eosinophils # (auto) 0.15 K/uL (0-0.5); Eosinophils % (auto) 2.8 %; Hematocrit (blood only) 33.9 % (37-47); Hemoglobin 10.9 g/dL (12.0-16.0); Lymphocytes # (auto) 1.52 K/uL (1.2-3.4); Lymphocytes % (auto) 28.6 %; Mean Corpuscular Hemoglobin 26.9 pg (25-34); Mean Corpuscular Hgb Conc 32.2 g/dL (32-36); Mean Corpuscular Volume 83.7 fL (80-100); Mean Platelet Volume 10.9 fL (7.4-10.4); Monocytes # (auto) 0.62 K/uL (0.11-0.59); Monocytes % (auto) 11.7 %; Neutrophils % (auto) 56.5 %; Platelet Count 226 K/uL (130-400); RDW Coefficient of Variation 14.9 % (11.5-14.5); RDW Standard Deviation 45.4 fL (36.4-46.3); Red Blood Count 4.05 M/uL (4.2-5.4); White Blood Count 5.31 K/uL (4.8-10.8)
[2021-03-07 07:12] LABS: Creatinine Clr Calc Pharmacy 130.7 ml/min; Est GFR (Non-African American) 114.7 ml/min; Potassium 3.6 mmol/L (3.5-5.1)
[2021-03-07] MEDS: MoRPHine SULFATE 2 MG/ML CARP IV PRN (07:47)
[2021-03-07 09:08] LABS: Magnesium 1.6 mg/dl (1.7-2.4); Phosphorus 3.4 mg/dl (2.5-4.9)
--- NOTE | 2021-03-07 10:37 | Hospitalist Progress Note ---
Date of Service March 07, 2021 Assessment & Plan (1) Small bowel obstruction, partial: Plan: Nataliia Gandhi is a 20y/o F w/ PMH significant for intestinal malrotation at , and acne; admitted for 1+ day of abdominal pain, nausea and vomiting, decreased BM. Acute partial small bowel obstruction: -Risk factor- previous abdominal surgery. SBO most likely due to adhesions. -CTAP- dilated fluid + gas-filled small bowel loops -NSS IVF, NPO -Surgery consulted and following -Recommend conservative treatment at this time with NPO, IV fluids, supportive care -If symptoms worsen can consider exploratory laparotomy -03/07 recommendations- remain NPO + IVF due to persistent pain, consider NG tube placement if persistent nausea/vomiting occur -Pain control with Tylenol, Toradol. Avoid morphine use due to possibly reducing gastric motility -Zofran, Phenergan PRN for nausea -Continue mIVF Hypoglycemia -Admission glucose 48, asymptomatic. Given D5LR. -03/07 glucose 85 -Trend BMP Asymptomatic bacteriuria: -Abnormal urinalysis in ED, urine culture w/ no growth. -Will not treat with abx given no urinary symptoms CODE STATUS: Conditional code (no artificial ventilation) DVT prophylaxis: Encourage ambulation Diet: NPO Disposition: Floor (2) Asymptomatic bacteriuria: Admission and Anticipated Discharge Date Admission Date: March 04, 2021 Supervising Physician Co-Signing Physician Notes Resident Physician Supervision Note: I independently interviewed and examined the patient and verified the barber history and physical, reviewed labs and image studies and agree with resident Dr. Silva findings and care plan. Subjective Pt had abdominal pain overnight 10/10 severity, KUB ordered which showed distended bladder. Received Toradol and also voided, reported significant improvement in pain afterwards. Currently endorsing 5/10 abdominal pain, states she passed gas last night and again 1.5 hours prior to evaluation. Review of Systems Review of Systems: Per subjective Physical Exam Constitutional: WD/WN, vitals as above Eyes: PERRL, conjunctivae normal, anicteric sclerae Respiratory: normal respiratory effort, lungs clear to auscultation Auscultation: no crackles, no rales, no rhonchi and no wheezes Cardiovascular: RRR, no murmur, no edema Rate/Rhythm: regular rate and regular rhythm Heart Sounds: no gallop, no murmur and no cardiac rub Vessels: normal peripheral pulses; no JVD Extremities: no edema Gastrointestinal (Abdomen): Inspection/Auscultation: abdomen normal to inspection and + abdomen distended Percussion/Palpation: + abdomen tender and abdomen soft; no guarding and no hepatosplenomegaly Skin: no rashes, warm and dry Neurologic: CN's II-XI intact bilaterally and moves all extremities Psychiatric: Orientation: alert Results & Data Results & Data ([facility]) Vital Signs (Past 12 Hours) Vital Signs Temp Pulse Resp BP Pulse Ox 03/07/21 07:16 36.9 C 67 18 98/49 L 93 03/06/21 23:00 36.7 C 63 17 101/66 97 Resident Activity Tracking Resident Involvement: Resident Care Provided Care Provided: Adult Hospital Medicine
[2021-03-07] MEDS: KETOROLAC TROMETHAMINE 15 MG/ML VIAL IV PRN ×2 (11:47→18:36)
[2021-03-07] MEDS: SODIUM CHLORIDE 0.9% 1000ML 1,000 ML IV SCH (12:29)
[2021-03-07] MEDS: MAGNESIUM SULFATE / D5W 1 GM/100 ML BAG IV SCH ×2 (12:46→16:17)
[2021-03-08] MEDS: SODIUM CHLORIDE 0.9% 1000ML 1,000 ML IV SCH ×2 (00:09→07:27)
[2021-03-08] MEDS: KETOROLAC TROMETHAMINE 15 MG/ML VIAL IV PRN ×3 (00:32→13:09)
--- NOTE | 2021-03-08 05:39 | Surgery Progress Note ---
Date of Service March 08, 2021 Assessment & Plan (1) Small bowel obstruction, partial: Plan: Patient has been admitted by the hospitalist service: CT scan on 03/04/2021 showed a moderately distended and fluid-filled small bowel concerning for small bowel obstruction without a clear transition point. Findings were also felt to potentially represent nonspecific enteritis. Evidence for congenital intestinal malrotation was also noted but there is no evidence of a volvulus. Would continue n.p.o. for the present time until patient has improvement on her abdominal exam and improved bowel function Continue to hold on NG tube unless patient has nausea or vomiting Continue IV fluid for hydration Electrolytes checked yesterday with no significant deficiencies Admission and Anticipated Discharge Date Admission Date: March 04, 2021 Supervising Physician Co-Signing Physician Notes Dr. Quinteros-patient has not had any emesis and has somewhat less abdominal pain She does want to try some clear liquids Continue supportive care for now Hold off on any contrast study for today Subjective Patient is resting comfortably in bed at the time of my interview. She denied any nausea or vomiting over the past 24 hours. She notes that last evening she did pass a small amount of flatus. She notes that she does not have much in the way of appetite but previously when she would see food commercials on TV this would make her her feel nauseated which was not the case last night. She continues to note some generalized abdominal pain just to the left of her umbilicus. Physical Exam Gastrointestinal (Abdomen): Abdomen noted to have minimal distention. Bowel sounds are hypoactive. There is no rebound tenderness or guarding but patient does have pain with palpation just to the left of the umbilicus. Results & Data ([facility]) Vital Signs (Past 12 Hours) Vital Signs Temp Pulse Resp BP Pulse Ox 03/07/21 23:12 36.6 C 72 17 99/60 L 96 PG Care Time/CCT Total # of Minutes Spent Total Time Spent with Patient: Total time spent is greater than 50% in coordination of care (as documented) at patient's floor/unit and/or counseling patient: Coding Level of Care Code 64322 Subseq Hosp Care Lvl 1 Diagnoses Small bowel obstruction, partial K56.600
[2021-03-08 08:19] LABS: Hematocrit (blood only) 33.6 % (37-47); Mean Corpuscular Hemoglobin 27.1 pg (25-34); Mean Corpuscular Hgb Conc 32.7 g/dL (32-36); Mean Corpuscular Volume 82.8 fL (80-100); Mean Platelet Volume 10.9 fL (7.4-10.4); Platelet Count 213 K/uL (130-400); RDW Coefficient of Variation 14.6 % (11.5-14.5); RDW Standard Deviation 43.5 fL (36.4-46.3); Red Blood Count 4.06 M/uL (4.2-5.4); White Blood Count 6.54 K/uL (4.8-10.8)
[2021-03-08 08:52] LABS: Anion Gap 8 (3-11); BUN Creatinine Ratio 14.8 (10-20); Blood Urea Nitrogen 8 mg/dl (6-23); Calcium 7.6 mg/dl (8.5-10.1); Carbon Dioxide 18 mmol/L (21-32); Chloride 111 mmol/L (98-107); Creatinine Clr Calc Pharmacy 181.6 ml/min; Est GFR (African American) > 150.0 ml/min; Est GFR (Non-African American) 135.8 ml/min; Glucose 53 mg/dl (70-99); Magnesium 1.7 mg/dl (1.7-2.4); Potassium 3.8 mmol/L (3.5-5.1); Sodium 137 mmol/L (136-145)
[2021-03-08] MEDS ORDERED: DEXTROSE 50% 50 ML SYRINGE IV PRN (09:00)
[2021-03-08] MEDS ORDERED: CARBOHYDRATES FOR HYPOGLYCEMIA PO PRN (09:00)
[2021-03-08] MEDS ORDERED: GLUCAGON FOR INJ 1 MG VIAL IM PRN (09:00)
[2021-03-08] MEDS ORDERED: GLUCOSE 10 TABS/TUBE PO PRN (09:00)
[2021-03-08] MEDS ORDERED: GLUCOSE 40% GEL 15 GM TUBE PO PRN (09:00)
--- NOTE | 2021-03-08 11:48 | Hospitalist Progress Note ---
Date of Service March 08, 2021 Assessment & Plan (1) Small bowel obstruction, partial: Plan: Nataliia Gandhi is a 20y/o F w/ PMH significant for intestinal malrotation at , and acne; admitted for 1+ day of abdominal pain, nausea and vomiting, decreased BM. Acute partial small bowel obstruction: -Risk factor- previous abdominal surgery. SBO most likely due to adhesions. -CTAP- dilated fluid + gas-filled small bowel loops -NSS IVF, NPO -Surgery consulted and following -03/08 recommendations- remain NPO + IVF, consider NG tube placement if persistent nausea/vomiting occur. If pain/abdominal exam/nausea improve, can begin trial of PO intake -Pain control with Tylenol, Toradol PRN. Avoid morphine use due to possibly reducing gastric motility -Zofran, Phenergan PRN for nausea Hypoglycemia -Admission glucose 48, asymptomatic. Given D5LR. -03/08 glucose 53 on BMP, 42 FS. Received 50% dextrose IV, glucose to 131 afterward -Likely due to NPO. Consider adding dextrose to IVF if pt requires continued NPO status -Trend BMP Hyperchloremia -03/08 Cl 111, CO2 18, Cr 0.54 -Likely due to continuous NSS IVF. Expected to improve once patient can start PO intake -Switch to LR -Trend BMP Asymptomatic bacteriuria: -Abnormal urinalysis in ED, urine culture w/ no growth. -Will not treat with abx given no urinary symptoms CODE STATUS: Conditional code (no artificial ventilation) DVT prophylaxis: Encourage ambulation Diet: NPO Disposition: Floor (2) Asymptomatic bacteriuria: Admission and Anticipated Discharge Date Admission Date: March 04, 2021 Supervising Physician Co-Signing Physician Notes Resident Physician Supervision Note: I independently interviewed and examined the patient and verified the barber history and physical, reviewed labs and image studies and agree with resident Cynthia Silva findings and care plan. Subjective No acute events overnight. Pt did pass gas previous evening and twice more overnight prior to evaluation. Still reporting diffuse abdominal pain- 5/10 severity slightly decreased from day prior, received Toradol shortly prior to evaluation. Also attempted to sip water this morning and felt nauseous afterw ángel. Review of Systems Review of Systems: Per subjective Physical Exam Constitutional: WD/WN, vitals as above Eyes: PERRL, conjunctivae normal, anicteric sclerae Respiratory: normal respiratory effort, lungs clear to auscultation Auscultation: no crackles, no rales, no rhonchi and no wheezes Cardiovascular: RRR, no murmur, no edema Rate/Rhythm: regular rate and regular rhythm Heart Sounds: no gallop, no murmur and no cardiac rub Vessels: normal peripheral pulses; no JVD Extremities: no edema Gastrointestinal (Abdomen): Inspection/Auscultation: abdomen normal to inspection and + abdomen distended Percussion/Palpation: + abdomen tender and abdomen soft; no guarding and no hepatosplenomegaly Musculoskeletal: no cyanosis or clubbing, extremities motor strength 5/5 Skin: no rashes, warm and dry Neurologic: moves all extremities Psychiatric: Orientation: alert Results & Data Results & Data ([facility]) Vital Signs (Past 12 Hours) Vital Signs Temp Pulse Resp BP Pulse Ox 03/08/21 07:36 36.8 C 64 20 99/55 L 98 Resident Activity Tracking Resident Involvement: Resident Care Provided Care Provided: Adult Hospital Medicine
[2021-03-08] MEDS: LACTATED RINGER'S 1,000 ML IV SCH ×2 (13:13→21:34)
[2021-03-09] MEDS: LACTATED RINGER'S 1,000 ML IV SCH (05:34)
--- NOTE | 2021-03-09 07:35 | Hospitalist Progress Note ---
Date of Service March 09, 2021 Assessment & Plan (1) Small bowel obstruction, partial: Plan: Nataliia Gandhi is a 20y/o F w/ PMH significant for intestinal malrotation at , and acne; admitted for 1+ day of abdominal pain, nausea and vomiting, decreased BM. Acute partial small bowel obstruction: -Risk factor- previous abdominal surgery. SBO most likely due to adhesions. -CTAP- dilated fluid + gas-filled small bowel loops -NSS IVF, NPO -Surgery consulted and following * Recommend conservative treatment at this time with NPO, IV fluids, supportive care * Exploratory laparotomy if symptoms worsen * Consider NG tube placement if nausea/vomiting persists * Pain control with Tylenol, Toradol PRN * Zofran, Phenergan PRN for nausea * Advanced diet to clear liquids for breakfast, lunch; advance diet again to full liquids for dinner; monitor for * Hold IV fluids Hypoglycemia -Admission glucose 48, asymptomatic. Given D5LR. -03/08 glucose 53 on BMP, 42 FS. Received 50% dextrose IV, glucose to 131 afterward -Likely due to NPO. Consider adding dextrose to IVF if pt requires continued NPO status * Glucose tablets, IV fluids, dextrose all held as patient's diet advanced * Trend BMP Hyperchloremic non-anion gap metabolic acidosis -03/08 Cl 111, CO2 18, Cr 0.54 -Likely due to continuous NSS IVF. Expected to improve once patient can start PO intake * Diet advance to full liquids * Trend BMP Asymptomatic bacteriuria: -Abnormal urinalysis in ED, urine culture w/ no growth. -Will not treat with abx given no urinary symptoms CODE STATUS: Conditional code (no artificial ventilation) DVT prophylaxis: Encourage ambulation Diet: Full liquid diet Dispo: MedSurg without telemetry (2) Asymptomatic bacteriuria: Admission and Anticipated Discharge Date Admission Date: March 04, 2021 Supervising Physician Co-Signing Physician Notes I personally examined the patient and verified all barber points of history and exam, discussed case, and agree with decision making with Dr Wright feeling better pain better nausea better tolerated clear liquids no problem vitals noted nad heent nc at mmm breathing unlabored no accessory muscles good effort skin no rashes no pallor or icterus abd soft nd nt no guarding no rebound SBO - improving. slowly advance diet as tolerated, hopefully home once doing better /tolerating low fiber otherwise as above Subjective Patient is resting comfortably in bed this morning. No acute events overnight. Patient reports significant improvement in her abdominal pain, nausea, vomiting. She did not require her antiemetic medications yesterday or overnight. Overall, she states that this is the best she has felt since her admission. She has no concerns or questions at this time. Review of Systems Review of Systems: All systems reviewed & are unremarkable except as noted in HPI & below Physical Exam Constitutional: WD/WN, vitals as above Respiratory: normal respiratory effort, lungs clear to auscultation Cardiovascular: RRR, no murmur, no edema Gastrointestinal (Abdomen): normal bowel sounds, soft, nontender, no hepatosplenomegaly Results & Data Results & Data ([facility]) Vital Signs (Past 12 Hours) Vital Signs Temp Pulse Resp BP Pulse Ox 03/08/21 22:23 36.9 C 57 L 16 95/55 L 97 Resident Activity Tracking Resident Involvement: Resident Care Provided Care Provided: Adult Hospital Medicine
[2021-03-09 09:01] LABS: Hematocrit (blood only) 34.8 % (37-47); Hemoglobin 11.2 g/dL (12.0-16.0); Mean Corpuscular Hemoglobin 26.9 pg (25-34); Mean Corpuscular Hgb Conc 32.2 g/dL (32-36); Mean Corpuscular Volume 83.7 fL (80-100); Mean Platelet Volume 11.1 fL (7.4-10.4); Platelet Count 231 K/uL (130-400); RDW Standard Deviation 45.5 fL (36.4-46.3); Red Blood Count 4.16 M/uL (4.2-5.4); White Blood Count 6.11 K/uL (4.8-10.8)
[2021-03-09 09:27] LABS: BUN Creatinine Ratio 7.7 (10-20); Calcium 8.2 mg/dl (8.5-10.1); Creatinine Clr Calc Pharmacy 150.9 ml/min; Est GFR (African American) 148.1 ml/min; Est GFR (Non-African American) 127.8 ml/min
--- NOTE | 2021-03-09 12:21 | Surgery Progress Note ---
Date of Service March 09, 2021 Assessment & Plan (1) Enteritis: (2) Small bowel obstruction, partial: Plan: pt is a 20 year-old female who was admitted to hospital for abdominal pain with vomiting, IMP: SBO, enteritis? adhesion ? plan, recommend conservative treatment first, NPO, IV fluid, control pain, repeat labs KUB in morning, possible to do exploratory laparotomy if pt's symptoms are getting worse, pt understood, she agrees with the treatment, plan, I answered all questions,will F/U, 03/06/2021, 7:47AM F/U SBO doing better, passed some gas, less abdominal pain, KUB-IMPRESSION: Findings suggestive of resolving small bowel obstruction. 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 Calderón doing better, passed gas, no abdominal pain, tolerated clear diet, possible advance diet tomorrow, will F/U, Admission and Anticipated Discharge Date Admission Date: March 04, 2021 Supervising Physician Co-Signing Physician Notes Resident Physician Supervision Note: I independently interviewed and examined the patient and verified the barber history and physical, reviewed labs and image studies and agree with resident Dr. Silva findings and care plan. Subjective No acute events overnight. Pt did pass gas previous evening and twice more overnight prior to evaluation. Still reporting diffuse abdominal pain- 5/10 severity slightly decreased from day prior, received Toradol shortly prior to evaluation. Also attempted to sip water this morning and felt nauseous afterward. 03/09/2021 12:[address] Calderón F/U SBO, pt feels better, no abdominal pain, tolerated clear diet, no nausea, no vomiting, passed gas, no BM yet, Review of Systems Constitutional: as per Subjective / HPI Eyes: as per Subjective / HPI Ear, Nose, Mouth, Throat: as per Subjective / HPI Respiratory: as per Subjective / HPI Cardiovascular: as per Subjective / HPI Gastrointestinal: malrotaion GI, surgery on abdomen Genitourinary: as per Subjective / HPI Musculoskeletal: as per Subjective / HPI Neurologic: as per Subjective / HPI Psychiatric: as per Subjective / HPI Endocrine: as per Subjective / HPI Hematologic / Lymphatic: as per Subjective / HPI Physical Exam Constitutional: WD/WN, vitals as above Eyes: PERRL, conjunctivae normal, anicteric sclerae Neck: trachea midline, no thyromegaly Respiratory: normal respiratory effort, lungs clear to auscultation Cardiovascular: RRR, no murmur, no edema Gastrointestinal (Abdomen): soft, NT, ND, BS + Musculoskeletal: no cyanosis or clubbing, extremities motor strength 5/5 Neurologic: patellar DTR's 2+ bilat, sensation intact Psychiatric: A+Ox3, euthymic affect Results & Data ([facility]) Vital Signs (Past 12 Hours) Vital Signs Temp Pulse Resp BP Pulse Ox 03/09/21 08:36 36.7 C 64 16 98/59 L 94 Laboratory Results Abnormal lab results 03/09/21 03/09/21 03/09/21 Range/Units 08:11 08:11 09:48 RBC 4.16 L (4.2-5.4) M/uL Hgb 11.2 L (12.0-16.0) g/dL Hct 34.8 L (37-47) % RDW Coeff of Jim 15.0 H (11.5-14.5) % MPV 11.1 H (7.4-10.4) fL Chloride 110 H (98-107) mmol/L Carbon Dioxide 17 L (21-32) mmol/L BUN 5 L (6-23) mg/dl BUN/Creatinine Ratio 7.7 L (10-20) Glucose 49 L* (70-99(Fasting)) mg/dl POC Glucose 111 H (70-99) mg/dl Calcium 8.2 L (8.5-10.1) mg/dl Diagnostic Findings XR KUB/Abdomen 1 view at 8:32 PM CLINICAL HISTORY: SBO eval.. COMPARISON STUDY: 03/06/2021 at 6:54 AM TECHNIQUE: Single view of the abdomen. FINDINGS: Compared to the previous examination, air-filled loops of both large and small bowel are seen without evidence for disproportionate dilatation or obstruction. There is no evidence for organomegaly or gross intra-abdominal mass. There is gross distention of the urinary bladder. No abnormal calcifications are seen along the course of the urinary tracts bilaterally. No acute osseous pathology. IUD is in place. IMPRESSION: 1.Air-filled loops of both large and small bowel without evidence for disproportionate dilatation or obstruction. Distention of the urinary bladder.
[2021-03-09] MEDS ORDERED: D5W AND 1/2NSS + 20MEQ KCL 20 MEQ/1,000 ML BAG IV SCH (12:30)
--- NOTE | 2021-03-09 13:08 | Billing Data ---
Date of Service March 09, 2021 Coding Level of Care Code 12341 Subseq Hosp Care Lvl 3
[2021-03-09] MEDS: POLYETHYLENE (MIRALAX) 17 GM PACK PO SCH (13:16)
[2021-03-10 07:09] LABS: Basophils # (auto) 0.03 K/uL (0-0.2); Basophils % (auto) 0.4 %; Eosinophils # (auto) 0.17 K/uL (0-0.5); Eosinophils % (auto) 2.5 %; Hematocrit (blood only) 33.9 % (37-47); Hemoglobin 11.1 g/dL (12.0-16.0); Immature Granulocytes # (auto) 0.01 K/uL (0.00-0.02); Immature Granulocytes % (auto) 0.1 %; Lymphocytes # (auto) 1.96 K/uL (1.2-3.4); Lymphocytes % (auto) 29.2 %; Mean Corpuscular Hemoglobin 26.9 pg (25-34); Mean Corpuscular Hgb Conc 32.7 g/dL (32-36); Mean Corpuscular Volume 82.3 fL (80-100); Mean Platelet Volume 10.3 fL (7.4-10.4); Monocytes % (auto) 10.4 %; Neutrophils # (auto) 3.84 K/uL (1.4-6.5); Neutrophils % (auto) 57.4 %; Platelet Count 220 K/uL (130-400); RDW Coefficient of Variation 15.2 % (11.5-14.5); RDW Standard Deviation 44.4 fL (36.4-46.3); Red Blood Count 4.12 M/uL (4.2-5.4); White Blood Count 6.71 K/uL (4.8-10.8)
[2021-03-10 07:32] LABS: BUN Creatinine Ratio 5.3 (10-20); Calcium 8.6 mg/dl (8.5-10.1); Creatinine Clr Calc Pharmacy 130.7 ml/min; Est GFR (Non-African American) 114.7 ml/min; Potassium 3.5 mmol/L (3.5-5.1)
--- NOTE | 2021-03-10 07:48 | Hospitalist Progress Note ---
Date of Service March 10, 2021 Assessment & Plan (1) Small bowel obstruction, partial: Plan: Nataliia Gandhi is a 20y/o F w/ PMH significant for intestinal malrotation at , and acne; admitted for 1+ day of abdominal pain, nausea and vomiting, decreased BM. Acute partial small bowel obstruction: -Risk factor- previous abdominal surgery. SBO most likely due to adhesions. -CTAP- dilated fluid + gas-filled small bowel loops -NSS IVF, NPO -Surgery consulted: recommended conservative treatment with IV fluids, making n.p.o. with the option to advance to an exploratory laparotomy if symptoms worsened.Recommended NG tube placement for persistent nausea/vomiting * Pain control with Tylenol, Toradol PRN * Zofran, Phenergan PRN for nausea * Full liquid diet Hypoglycemia -Admission glucose 48, asymptomatic. Given D5LR. -03/08 glucose 53 on BMP, 42 FS. Received 50% dextrose IV, glucose to 131 afterward -Likely due to NPO. Consider adding dextrose to IVF if pt requires continued NPO status * Glucose tablets, IV fluids, dextrose all held as patient's diet advanced * Trend BMP Hyperchloremic non-anion gap metabolic acidosis -03/08 Cl 111, CO2 18, Cr 0.54 -Likely due to continuous NSS IVF. Expected to improve once patient can start PO intake * Diet advance to full liquids * Trend BMP Asymptomatic bacteriuria: -Abnormal urinalysis in ED, urine culture w/ no growth. -Will not treat with abx given no urinary symptoms CODE STATUS: Conditional code (no artificial ventilation) DVT prophylaxis: Encourage ambulation Diet: Full liquid diet Dispo: MedSurg without telemetry (2) Asymptomatic bacteriuria: Admission and Anticipated Discharge Date Admission Date: March 04, 2021 Results & Data Results & Data ([facility]) Vital Signs (Past 12 Hours) Vital Signs Temp Pulse Pulse Resp BP Pulse Ox 03/10/21 07:17 37.1 C 56 L 16 102/67 100 03/09/21 22:50 36.8 C 78 16 103/68 93
[2021-03-10] MEDS: POLYETHYLENE (MIRALAX) 17 GM PACK PO SCH (09:51)
--- NOTE | 2021-03-10 12:24 | Surgery Progress Note ---
Date of Service March 10, 2021 Assessment & Plan (1) Enteritis: (2) Small bowel obstruction, partial: Plan: pt is a 20 year-old female who was admitted to hospital for abdominal pain with vomiting, IMP: SBO, enteritis? adhesion ? plan, recommend conservative treatment first, NPO, IV fluid, control pain, repeat labs KUB in morning, possible to do exploratory laparotomy if pt's symptoms are getting worse, pt understood, she agrees with the treatment, plan, I answered all questions,will F/U, 03/06/2021, 7:47AM F/U SBO doing better, passed some gas, less abdominal pain, KUB-IMPRESSION: Findings suggestive of resolving small bowel obstruction. possible try clear diet if pt pass more gas today afternoon or tomorrow, continue conservative treatment practice management consultant surgeon will cover this weekend, thanks, 03/09/2021 12:22PM DR. Barragan doing better, passed gas, no abdominal pain, tolerated clear diet, possible advance diet tomorrow, will F/U, 03/10/2021 12:21PM, Dr. barragan resolved SBO, soft diet, pt can be discharged today or tomorrow if she tolerated diet, Follow up my clinic in 2 weeks, sign off today, please call with questions, Thanks, Admission and Anticipated Discharge Date Admission Date: March 04, 2021 Supervising Physician Co-Signing Physician Notes I personally examined the patient and verified all barber points of history and exam, discussed case, and agree with decision making with Dr Wright feeling better pain better nausea better tolerated clear liquids no problem vitals noted nad heent nc at mmm breathing unlabored no accessory muscles good effort skin no rashes no pallor or icterus abd soft nd nt no guarding no rebound SBO - improving. slowly advance diet as tolerated, hopefully home once doing better /tolerating low fiber otherwise as above Subjective Patient is resting comfortably in bed this morning. No acute events overnight. Patient reports significant improvement in her abdominal pain, nausea, vomiting. She did not require her antiemetic medications yesterday or overnight. Overall, she states that this is the best she has felt since her admission. She has no concerns or questions at this time. 03/10/2021 12:19PM, Dr. Barragan F/U SBO, doing fine, no abdominal pain, pass gas, no BM yet, tolerated diet, no nausea, no vomiting, Review of Systems Constitutional: as per Subjective / HPI Eyes: as per Subjective / HPI Ear, Nose, Mouth, Throat: as per Subjective / HPI Respiratory: as per Subjective / HPI Cardiovascular: as per Subjective / HPI Gastrointestinal: malrotaion GI, surgery on abdomen Genitourinary: as per Subjective / HPI Musculoskeletal: as per Subjective / HPI Neurologic: as per Subjective / HPI Psychiatric: as per Subjective / HPI Endocrine: as per Subjective / HPI Hematologic / Lymphatic: as per Subjective / HPI Physical Exam Constitutional: WD/WN, vitals as above Eyes: PERRL, conjunctivae normal, anicteric sclerae Neck: trachea midline, no thyromegaly Respiratory: normal respiratory effort, lungs clear to auscultation Cardiovascular: RRR, no murmur, no edema Gastrointestinal (Abdomen): soft, NT, ND, BS + Musculoskeletal: no cyanosis or clubbing, extremities motor strength 5/5 Neurologic: patellar DTR's 2+ bilat, sensation intact Psychiatric: A+Ox3, euthymic affect Results & Data ([facility]) Vital Signs (Past 12 Hours) Vital Signs Temp Pulse Resp BP Pulse Ox 03/10/21 07:17 37.1 C 56 L 16 102/67 100 Laboratory Results Abnormal lab results 03/10/21 03/10/21 Range/Units 06:43 06:43 RBC 4.12 L (4.2-5.4) M/uL Hgb 11.1 L (12.0-16.0) g/dL Hct 33.9 L (37-47) % RDW Coeff of Jim 15.2 H (11.5-14.5) % Pender # (Auto) 0.70 H (0.11-0.59) K/uL Chloride 109 H (98-107) mmol/L BUN 4 L (6-23) mg/dl BUN/Creatinine Ratio 5.3 L (10-20)
--- NOTE | 2021-03-10 17:00 | Discharge Summary ---
Date of Service March 10, 2021 Admission HPI Per Admitting Provider Nataliia Gandhi is a 20y/o F w/ PMH significant for intestinal malrotation at , and acne; who presents for over a day worth of abdominal pain nausea and vomiting with decreased bowel movements. States that yesterday she went to lunch with some friends, and then approximately 6 hours later started to notice that she was having increasing abdominal pain as well as nausea. Over the next several hours she continued to have nausea with intermittent episodes of vomiting. Throughout the day today she noticed that she was having increased urge to go to the bathroom but every time she went she would either have nothing or pure liquid. Has not previously had complications or events like this before. Nobody else that was at lunch has developed symptoms similar to her that she is aware of. Since presentation to the emergency department, she has received 2 doses of Zofran with subsequent improvement of her nausea. As well as received 1 dose of IV morphine which significantly decreased her abdominal pain. She has been able to tolerate small amounts of sips. Has not tried to anything more substantial at this point. Presently denies any chest pain, shortness of breath, urinary discomfort, increased urinary frequency, or changes in color in urine Principal Diagnosis SBO - improved Discharge Exam vitals noted nad heent nc at mmm breathing unlabored no accessory muscles good effort skin no rashes no pallor or icterus neuro no focal deficits Discharge Data Allergies Allergy/AdvReac Type Severity Reaction Status Date / Time No Known Allergies Allergy Unverified 03/04/21 20:41 Consultations 03/04/21 22:55 ED Decision to Admit Stat 03/05/21 10:27 Consult General Surgery Routine Ordered Studies 03/04/21 21:09 CT abd pelvis IV con only Urgent Hospital Course (1) Small bowel obstruction, partial: Nataliia Gandhi is a 20y/o F w/ PMH significant for intestinal malrotation at , and acne; admitted for 1+ day of abdominal pain, nausea and vomiting, decreased BM. Acute partial small bowel obstruction: -Risk factor- previous abdominal surgery. SBO most likely due to adhesions. -CTAP- dilated fluid + gas-filled small bowel loops -took several days but finally started to show improvement - 03/09 --> 03/10 progressed diet to low fiber/regular - stable for home. outpt f/u. -mild acute malnutrition - from prolonged NPO - goes [id number] w hypoglycemia Hypoglycemia -Likely due to NPO. no signs of insulin secretion d/o - just likely "out of fuel" Hyperchloremic non-anion gap metabolic acidosis -related to NSS - improved. Asymptomatic bacteriuria: -Abnormal urinalysis in ED, urine culture w/ no growth. -Will not treat with abx given no urinary symptoms stable for home, outpt f/u Total Time Total Time Spent Total Time Spent (In Minutes): <30 Discharge Plan Discharge Items Patient Disposition: Home - Self-Care Reason For Visit: SBO Discharge Diagnosis: small bowel obstruction Condition on Discharge: Good Activity: Resume your previous activity Non-emergency contact: Primary Care Provider and Surgeon Call non-emergency contact if: you have any medication questions and your symptoms worsen Follow-up/Referrals: [facility] [Primary Care Provider] - Diet: Regular Addtl Attending Provider Instructions: You were admitted to the hospital for a small bowel obstruction. You were treated with medicines to control your nausea and vomiting, and IV fluids to sustain while you were on bowel rest. A discharge summary will be sent to your primary care physician to ensure continuity of care. Please bring this discharge summary with you to your next office appointment so that your provider can review it at that time. Follow-up appointments: * Make a follow-up appointment with your PCP within the next week. It is very important that you follow up with them shortly after discharge from the hospital. Medications: Your medication list has been reviewed and reconciled upon discharge to ensure accuracy and continuity of care. An updated list of all your medications is included with your hospital discharge paperwork. Please review this list closely, and make note of any changes. * We sent a new medication called Eevlyne to your pharmacy. Take x dose for x days. * We sent a new medication called x to your pharmacy. Take x dose for x days. Take your medications as instructed; do not skip a dose of your medicines. Make sure all of your doctors know every medicine you are taking (including ebps-ied-gkswamq medicines, vitamins, and supplements). Call your primary care provider before taking any new medicines (including djrc-lgr-hsgmgus medicines, vitamins, and supplements), because some of these may interact with your current medications, or may make your symptoms worse. Tell your primary care provider if you cannot afford your medications. CONTACT YOUR PRIMARY CARE PROVIDER if you experience any of the following: * * * Difficulty following your treatment plan, or difficulty taking medications CALL 911 OR GO TO THE EMERGENCY DEPARTMENT if you experience any of the following: * Sudden, severe abdominal pain or nausea/vomiting * Severe chest pain, or chest pain that radiates (moves) to your jaw or arm * Sudden, severe shortness of breath or difficulty breathing Thank you for allowing us to participate in your care. Pending Studies at Discharge: No Stand-Alone Forms: [email or web address], Work/School Release, Smoking Cessation Medications and DC Order Prescriptions: New ondansetron 4 mg tablet,disintegrating 4 mg PO DAILY PRN (Reason: nausea and vomiting) Qty: 30 RF: 0 Continued spironolactone 50 mg tablet 50 mg PO DAILY RF: 0 Discharge Orders: Discharge Order (Routine); Ordered 03/10/21 Ordered By: Ryan Cook/Other Patient Handouts: Small Bowel Obstruction, Low-Fiber Diet Admission Data Admit Date/Time: 03/04/21 23:45 Attending Provider: Darryn Cesar Admit Provider: Norberto Akers Primary Care Provider: [facility] Other Providers: Alison Agustin ; Olaf Calderón ; Claire Lozada Other Interventions: Discharge Summary Assessment (RN) Last Done: 03/10/21 13:45 Coding Level of Care Code D/C DAY MANAGEMENT <30 MINS Diagnoses Small bowel obstruction, partial K56.600
== END 2021-03-10 17:37 | disposition home or self-care (01) | DRG 389 ==
LOC: ED 19:53 → SUATTDRO 23:45 → 3N 23:45
DX: E87.2 Acidosis; E87.8 Other disorders of electrolyte and fluid balance, not elsewhere classified; E16.2 Hypoglycemia, unspecified; R82.71 Bacteriuria; E44.1 Mild protein-calorie malnutrition; K56.51 Intestinal adhesions [bands], with partial obstruction